=== PATIENT | male | born 1980 | race Caucasian/White ===

== ENCOUNTER 2019-01-24 17:08 | Emergency (ER) | payer OTHER ==
[2019-01-24] MEDS ORDERED: TETANUS & DIPHTHERIA TOX,ADULT 0.5 ML VIAL ONE (17:28)
[2019-01-24] MEDS ORDERED: AMOX/K CLAV 875 MG TAB ONE (17:28)
[2019-01-24] MEDS ORDERED: HYDROCODONE/APAP 10/325 TAB ONE (17:28)
[2019-01-24] MEDS ORDERED: FENTANYL CITR 100 MCG/2 ML ONE (18:23)
--- NOTE | 2019-01-24 19:14 | RAD REPORT ---
EXAM DESCRIPTION: RAD - Hand Right 3 View - 01/24/2019 6:20 pm CLINICAL HISTORY: Animal bite, hand pain COMPARISON: None. FINDINGS: No fracture is identified. There is no dislocation or periosteal reaction noted. No forei gn body or air in the soft tissues. IMPRESSION: Negative right hand examination.
--- NOTE | 2019-01-24 19:15 | RAD REPORT ---
EXAM DESCRIPTION: RAD - Hand Left 3 View - 01/24/2019 6:20 pm CLINICAL HISTORY: Animal bite, left hand pain COMPARISON: None. FINDINGS: No fracture, dislocation or periosteal reaction noted. No foreign body or other soft tissu e abnormality. IMPRESSION: Negative left hand examination.
--- NOTE | 2019-01-24 19:15 | RAD REPORT ---
EXAM DESCRIPTION: RAD - Forearm Right - 01/24/2019 6:20 pm CLINICAL HISTORY: Animal bite, arm pain COMPARISON: None. FINDINGS: No fracture is identified. There is no dislocation or periosteal reaction noted. No foreign body or other soft tissue abnormality. IMPRESSION: Negative right forearm examination.
--- NOTE | 2019-01-24 19:16 | RAD REPORT ---
EXAM DESCRIPTION: RAD - Forearm Left - 01/24/2019 6:20 pm CLINICAL HISTORY: Animal bite, left arm pain COMPARISON: None. FINDINGS: No fracture is identified. There is no dislocation or periosteal reaction noted. No foreign body or other soft tissue abnormality. IMPRESSION: Negative left forearm examination.
--- NOTE | 2019-01-24 20:04 | ER ---
Nurse's Notes [facility] Name: Dean Lockhart Age: 38 yrs Sex: Male : 1980 Arrival Date: 01/24/2019 Time: 17:15 Bed 19 Private MD: Diagnosis: Dog Bite;Thumb Sprain Presentation: 01/24 17:16 Presenting complaint: EMS states: was bitten by a K-9 [place] about 30 minutes em ago, bite ivy to left wrist, right hand, and scratch to abdomen, minimal bleeding noted. Transition of care: patient was not received from another setting of care. Onset of symptoms was January 24, 2019 at 16:45. Risk Assessment: Do you want to hurt yourself or someone else? Patient reports no desire to harm self or others. Initial Sepsis Screen: Does the patient meet any 2 criteria? No. Patient's initial sepsis screen is negative. Does the patient have a suspected source of infection? No. Patient's initial sepsis screen is negative. Care prior to arrival: None. 17:16 Method Of Arrival: EMS: [facility] em 17:25 Acuity: MARIELENA 4 hb Triage Assessment: 17:19 Bite description: bite sustained to right hand, lateral aspect of left wrist and medial em aspect of left wrist by a dog, animal information: vaccination(s) is current. Historical: - Allergies: 17:19 No Known Allergies; em - Home Meds: 17:19 None [Active]; em - PMHx: 17:19 None; em - PSHx: 17:19 Knee surgery; back surgery; em - Immunization history:: Adult Immunizations unknown. - Social history:: Smoking status: Patient/guardian denies using tobacco. - Ebola Screening: : Patient negative for fever greater than or equal to 101.5 degrees Fahrenheit, and additional compatible Ebola Virus Disease symptoms Patient denies exposure to infectious person Patient denies travel to an Ebola-affected area in the 21 days before illness onset No symptoms or risks identified at this time. Screenin:19 Abuse screen: Denies threats or abuse. Nutritional screening: No deficits noted. em Tuberculosis screening: No symptoms or risk factors identified. Fall Risk None identified. Assessment: 17:19 General: Appears in no apparent distress. uncomfortable, Behavior is calm, cooperative. em Pain: Complains of pain in dorsal aspect of right wrist and palmar aspect of right wrist Pain currently is 9 out of 10 on a pain scale. Pain began 30 min ago. Neuro: Level of Consciousness is awake, alert, obeys commands, Oriented to person, place, time, situation, Appropriate for age. Cardiovascular: Capillary refill < 3 seconds Patient's skin is warm and dry. Respiratory: Airway is patent Respiratory effort is even, unlabored, Respiratory pattern is regular, symmetrical. GI: Abdomen is flat, scratch noted to abdomen. Derm: Skin is intact, is healthy with good turgor, Skin is pink, warm \T\ dry. Musculoskeletal: Capillary refill < 3 seconds, Range of motion: limited in MCP of right thumb and CMC of right thumb. 17:29 Reassessment: I agree with previous assessment. 18:20 Reassessment: Patient appears in no apparent distress at this time. Patient and/or em family updated on plan of care and expected duration. Pain level reassessed. Patient is alert, oriented x 3, equal unlabored respirations, skin warm/dry/pink. reports pain in right hand is still 7/10, pain in right hand is tolerable, provider notified, new medication orders received. 19:27 Reassessment: Patient appears in no apparent distress at this time. Patient is alert, lp1 oriented x 3, equal unlabored respirations, skin warm/dry/pink. No active bleeding to wounds to right first finger, left wrist. Vital Signs: 17:19 BP 139 / 91; Pulse 86; Resp 18; Temp 98.2(O); Pulse Ox 99% on R/A; Weight 83.91 kg; em Height 5 ft. 10 in. (177.80 cm); Pain 9/10; 18:30 BP 137 / 89; Pulse 80; Resp 18; Pulse Ox 97% on R/A; Pain 7/10; em 19:30 BP 144 / 80; Pulse 83; Resp 16; Pulse Ox 96% on R/A; lp1 17:19 Body Mass Index 26.54 (83.91 kg, 177.80 cm) em ED Course: 17:15 Patient arrived in ED. em 17:16 Rohit Keller PA is PHCP. [facility] 17:16 Davie Hernandez MD is Attending Physician. [facility] 17:19 Arm band placed on. em 17:19 Patient has correct armband on for positive identification. Bed in low position. Call em light in reach. Side rails up X2. Adult w/ patient. Pulse ox on. NIBP on. 17:25 Triage completed. hb 17:38 All Chong LVN is Primary Nurse. em 18:21 Hand Right 3 View XRAY In Process Unspecified. EDMS 18:21 Hand Left 3 View XRAY In Process Unspecified. EDMS 18:21 Forearm Left XRAY In Process Unspecified. EDMS 18:21 Forearm Right In Process Unspecified. EDMS 20:00 Wound care: to Puncture wounds to left forearm, laceration to right first finger, right lp1 palm, small abrasions to right dorsal hand, right wrist was debrided using Betadine scrub, irrigated with normal saline, dressed with Neosporin, 4X4s, Kerlix. 20:30 Preformed thumm spica splint to right wrist. lp1 20:32 No provider procedures requiring assistance completed. Patient did not have IV access lp1 during this emergency room visit. 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 Exp: em 09/01/2020. Lot #: [id number]. } Route: IM; Site: right deltoid; 18:41 Follow up: Response: No adverse reaction em 18:34 Drug: fentaNYL (PF) 50 mcg Route: IM; Site: left deltoid; em 19:31 Follow up: Response: No adverse reaction; Pain is decreased; RASS: Alert and Calm (0) lp1 Outcome: 20:03 Discharge ordered by . estephania 20:33 Discharged to home ambulatory, with family, with friend. lp1 20:33 Condition: good 20:33 Discharge instructions given to patient, Instructed on discharge instructions, follow up and referral plans. medication usage, wound care. 20:39 Patient left the ED. lp1 Signatures: Dispatcher [employer] EDRohit Garcia PA PA jmm Munoz, Edgar, LVN CORN HUSKER Prachi Beltrán, RN RN lp1 Елена Manjarrez, RN RN hb Corrections: (The following items were deleted from the chart) 01/25 06:17 01/24 20:00 Wound care: to Puncture wounds to left forearm, laceration to right first lp1 finger, right palm, small abrasions to right dorsal hand, right wrist lp1
--- NOTE | 2019-01-24 20:04 | EDPHYS ---
Physician Documentation [facility] Name: Dean Lockhart Age: 38 yrs Sex: Male : 1980 Arrival Date: 01/24/2019 Time: 17:15 Bed 19 Private MD: ED Physician Davie Hernandez HPI: 01/24 17:29 This 38 yrs old Male presents to ER via EMS with complaints of Dog Bite. jmm 17:29 The patient was bitten on the right arm and left arm. Onset: The symptoms/episode jmm began/occurred acutely, just prior to arrival. Secondary to the bite the patient reports puncture. Associated signs and symptoms: Pertinent positives: pain at site, Pertinent negatives: erythema at site, loss of consciousness, suspected foreign body. This is a 38 year old male with no chronic medical conditions that presents to the ED with pain to his right hand, left forearm. patient states his right thumb was bent backwards during the attack. Unsure on tetanus immunization status. . Historical: - Allergies: 17:19 No Known Allergies; em - Home Meds: 17:19 None [Active]; em - PMHx: 17:19 None; em - PSHx: 17:19 Knee surgery; back surgery; em - Immunization history:: Adult Immunizations unknown. - Social history:: Smoking status: Patient/guardian denies using tobacco. - Ebola Screening: : Patient negative for fever greater than or equal to 101.5 degrees Fahrenheit, and additional compatible Ebola Virus Disease symptoms Patient denies exposure to infectious person Patient denies travel to an Ebola-affected area in the 21 days before illness onset No symptoms or risks identified at this time. ROS: 17:29 Constitutional: Negative for fever, chills, and weight loss, Cardiovascular: Negative jmm for chest pain, palpitations, and edema, Respiratory: Negative for shortness of breath, cough, wheezing, and pleuritic chest pain. 17:29 MS/extremity: Positive for injury or acute deformity, pain. 17:29 Skin: Positive for puncture. 17:29 All other systems are negative. Exam: 17:29 Constitutional: This is a well developed, well nourished patient who is awake, alert, jmm and in no acute distress. Head/Face: atraumatic. Eyes: EOMI, no conjunctival erythema appreciated ENT: Moist Mucus Membranes Neck: Trachea midline, Supple Chest/axilla: Normal chest wall appearance and motion. Cardiovascular: Regular rate and rhythm. No edema appreciated Respiratory: Normal respirations, no respiratory distress appreciated Abdomen/GI: Non distended, soft Back: Normal ROM 17:29 Musculoskeletal/extremity: from bilaterally, compartments are soft. Right thumb is TTP at the base of the phalanx, painful ROM, < 2 sec dist cap refill, NVI. 17:29 Skin: multiple punctures noted to the right hand and left left forearm, mild bleeding appreciated. 17:29 Neuro: Orientation: is normal, Mentation: is normal, Memory: is normal. 17:29 Psych: Behavior/mood is pleasant, cooperative. Vital Signs: 17:19 BP 139 / 91; Pulse 86; Resp 18; Temp 98.2(O); Pulse Ox 99% on R/A; Weight 83.91 kg; em Height 5 ft. 10 in. (177.80 cm); Pain 9/10; 18:30 BP 137 / 89; Pulse 80; Resp 18; Pulse Ox 97% on R/A; Pain 7/10; em 19:30 BP 144 / 80; Pulse 83; Resp 16; Pulse Ox 96% on R/A; lp1 17:19 Body Mass Index 26.54 (83.91 kg, 177.80 cm) em MDM: 17:20 Patient medically screened. [facility] 20:01 Data reviewed: vital signs, nurses notes. Counseling: I had a detailed discussion with danie the patient and/or guardian regarding: the historical points, exam findings, and any diagnostic results supporting the discharge/admit diagnosis, radiology results, the need for outpatient follow up, to return to the emergency department if symptoms worsen or persist or if there are any questions or concerns that arise at home. ED course: Wounds cleaned. patient is prescribed oral antibiotics. thumb spica applied. Patient is given wound infection return precautions. patient understood and agrees with the plan of care. . 01/24 17:26 Order name: Hand Right 3 View XRAY; Complete Time: 19:21 [facility] 01/24 17:26 Order name: Hand Left 3 View XRAY; Complete Time: 19:21 [facility] 01/24 17:26 Order name: Forearm Left XRAY; Complete Time: 19:21 [facility] 01/24 17:54 Order name: Forearm Right; Complete Time: 19:21 EDMS Administered Medications: 17:38 Drug: [place] 10 mg-325 mg 1 tabs Route: PO; em 18:40 Follow up: Response: No adverse reaction; Pain is decreased em 17:38 Drug: Augmentin 875 mg Route: PO; em 18:41 Follow up: Response: No adverse reaction em 17:40 Drug: Tetanus-Diphtheria Toxoid Adult 0.5 ml {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 Exp: em 09/01/2020. Lot #: [id number]. } Route: IM; Site: right deltoid; 18:41 Follow up: Response: No adverse reaction em 18:34 Drug: fentaNYL (PF) 50 mcg Route: IM; Site: left deltoid; em 19:31 Follow up: Response: No adverse reaction; Pain is decreased; RASS: Alert and Calm (0) lp1 Disposition: 20:01 Chart complete. [facility] Disposition: 01/24/19 20:03 Discharged to Home. Impression: Dog Bite, Thumb Sprain. - Condition is Stable. - Discharge Instructions: Thumb Sprain, Animal Bite. - Prescriptions for Augmentin 875- 125 mg Oral Tablet - take 1 tablet by ORAL route every 12 hours for 10 days; 20 tablet. Ultracet 37.5- 325 mg Oral Tablet - take 1 tablet by ORAL route every 6 hours - for up to 5 days; do not exceed 8 tablets per day.; 12 tablet. - Medication Reconciliation Form, Thank You Letter, Antibiotic Education, Prescription Opioid Use form. - Follow up: Private Physician; When: 2 - 3 days; Reason: Recheck today's complaints, Continuance of care, Re-evaluation by your physician. Addendum: 01/28/2019 20:24 Co-signature as Attending Physician, Davie Hernandez MD. r n Signatures: Dispatcher [employer] EDMS Rohit Keller PA PA jmm Munoz, Edgar, ARTICULATION OFFICER ARTICULATION OFFICER Davie Angulo MD MD rn Pena, Laura, RN RN lp1 Corrections: (The following items were deleted from the chart) 01/24 17:54 17:26 Wrist Left 3 View+RAD.RAD.BRZ ordered. EDMS EDMS 17:55 17:26 Wrist Right 3 View+RAD.RAD.BRZ ordered. EDMS EDMS 20:39 20:03 01/24/2019 20:03 Discharged to Home. Impression: Dog Bite; Thumb Sprain. lp1 Condition is Stable. Forms are Medication Reconciliation Form, Thank You Letter, Antibiotic Education, Prescription Opioid Use. Follow up: Private Physician; When: 2 - 3 days; Reason: Recheck today's complaints, Continuance of care, Re-evaluation by your physician. estephania
[2019-01-24 21:47] VITALS: BP 144/80; TEMP 98.2; O2SAT 96
== END 2019-01-24 20:39 | disposition home or self-care (01) ==
LOC: ER 17:08
DX: S63.601A Unspecified sprain of right thumb, initial encounter (principal); W54.0XXA Bitten by dog, initial encounter; Y93.89 Activity, other specified; Y92.9 Unspecified place or not applicable; Z23 Encounter for immunization
CPT/HCPCS: 90471; 90714; 96372; 99284; J3010